=== PATIENT | male | born 1980 | race African-American/Black ===

== ENCOUNTER 2024-12-31 07:45 | Emergency (ER) | payer SELFPAY ==
[~2024-12-31] VITALS: Ht 162.6 cm; Wt 95.0 kg
[2024-12-31 07:55] VITALS: O2SAT 98
[2024-12-31 07:57] VITALS: BP 169/78; PULSE 77; RESP 16; TEMP 36.7; O2SAT 100
[2024-12-31] MEDS ORDERED: IBUP-2029 MT (09:32)
[2024-12-31] MEDS ORDERED: METH-653 MT (09:32)
== END 2024-12-31 10:33 | disposition home or self-care (01) ==
LOC: ER 07:45
DX: S43.492A Other sprain of left shoulder joint, initial encounter (principal); F10.90 Alcohol use, unspecified, uncomplicated; F12.90 Cannabis use, unspecified, uncomplicated; W22.09XA Striking against other stationary object, initial encounter; Y93.89 Activity, other specified; Y92.89 Other specified places as the place of occurrence of the external cause; Y99.8 Other external cause status; Y90.9 Presence of alcohol in blood, level not specified
CPT/HCPCS: 73030; 99283